=== PATIENT | male | born 2000 | race African-American/Black ===

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

== ENCOUNTER 2022-03-12 15:09 | Inpatient (IN) | payer MEDICAID ==
[~2022-03-12] VITALS: Ht 170.2 cm; Wt 70.3 kg
[~2022-03-12 15:09] MED LIST: ARIP400S3 IM; ARIP5TAB37 PO
[2022-03-12 21:30] VITALS: BP 121/79
[2022-03-12] MEDS ORDERED: INFLUENZA VIRUS VACCINE QVS 2022-23 (6MO+)/PF 60 MCG/0.5 ML SYRINGE IM. ONE (22:30)
[2022-03-12] MEDS ORDERED: ALBUTEROL SULFATE HFA 90 MCG/PUFF 8 GM INHALER IH PRN (23:30)
[2022-03-12] MEDS ORDERED: PETROLATUM,WHITE 28 GM JELLY TP PRN (23:30)
[2022-03-12] MEDS ORDERED: LOPERAMIDE HCL 2 MG CAPSULE PO PRN (23:30)
[2022-03-12] MEDS ORDERED: CloNIDine HCL 0.1 MG TABLET PO PRN (23:30)
[2022-03-12] MEDS ORDERED: ACETAMINOPHEN 325 MG TABLET PO PRN (23:30)
[2022-03-12] MEDS ORDERED: DOCUSATE SODIUM 100 MG CAPSULE PO PRN (23:30)
[2022-03-12] MEDS ORDERED: ONDANSETRON HCL 4 MG TABLET PO PRN (23:30)
[2022-03-12] MEDS ORDERED: BACITRACIN 28 GM OINTMENT TP PRN (23:30)
[2022-03-12] MEDS ORDERED: BENZOCAINE/MENTHOL LOZENGE PO PRN (23:30)
[2022-03-12] MEDS ORDERED: OMEPRAZOLE 20 MG CAPSULE PO PRN (23:30)
[2022-03-12] MEDS ORDERED: MAGNESIUM HYDROXIDE SUSPENSION 30 ML UDCUP PO PRN (23:30)
[2022-03-12] MEDS ORDERED: MAG HYDROX/AL HYDROX/SIMETH ES 30 ML SUSPENSION UDCUP PO PRN (23:30)
[2022-03-13 07:11] LABS: BASOPHILS % (AUTO) 0.4 % (0.0-2.0); EOSINOPHILS % (AUTO) 0.6 % (1.0-6.0); HEMATOCRIT 46.7 % (41-53); HEMOGLOBIN 15.3 g/dL (13.5-17.5); LYMPHOCYTES # (AUTO) 1.2 K/uL (1.0-4.8); LYMPHOCYTES % (AUTO) 15.9 % (22.0-44.0); MEAN CORPUSCULAR HEMOGLOBIN 31.2 pg (26.0-34.0); MEAN CORPUSCULAR HGB CONC 32.7 G/dL (31.0-37.0); MEAN CORPUSCULAR VOLUME 95 fL (80-100); MONOCYTES # (AUTO) 0.4 K/uL (0.1-1.0); NEUTROPHILS # (AUTO) 5.6 K/uL (1.8-7.7); NEUTROPHILS % (AUTO) 77.1 % (40.0-70.0); PLATELET COUNT (AUTO) 181 K/uL (150-450); RED CELL DISTRIBUTION WIDTH 14.2 % (11.5-14.5)
[2022-03-13 07:32] LABS: ALANINE AMINOTRANSFERASE 27 U/L (12-78); ALBUMIN 4.4 g/dL (3.4-5.0); ALKALINE PHOSPHATASE 66 U/L (46-116); ANION GAP 9 mmol/L (8-16); ASPARTATE AMINOTRANSFERASE 21 U/L (15-37); BILIRUBIN,TOTAL 0.4 mg/dL (0.1-1.0); CALCIUM, TOTAL 9.8 mg/dL (8.8-10.5); CARBON DIOXIDE 30 mmol/L (22-29); CHLORIDE 99 mmol/L (98-107); CHOL/HDL RATIO 3.2 (4.2-7.3); CHOLESTEROL 164 mg/dL (131-200); CREATININE 1.02 mg/dL (0.60-1.30); FREE T4 (FREE THYROXINE) 1.16 ng/dL (0.76-1.46); GLUCOSE,RANDOM 102 mg/dL (70-110); HDL CHOLESTEROL 52 mg/dL (40-60); LDL CHOL (CALC.) 98 mg/dL (0-130); POTASSIUM 4.1 mmol/L (3.5-5.1); SODIUM SERUM 138 mmol/L (136-145); THYROID STIMULATING HORMONE 1.33 uIU/mL (0.36-3.74); TOTAL PROTEIN, SERUM 8.4 g/dL (6.4-8.2); TRIGLYCERIDES 70 mg/dL (15-150); UREA NITROGEN, BLOOD 14 mg/dL (7-18)
[2022-03-13 07:33] LABS: GLOMERULAR FILTR. RATE CALC > 60 mL/min (>60)
[2022-03-13 07:36] LABS: HEMOGLOBIN A1C 5.6 % (3.8-5.6)
[2022-03-13 08:05] LABS: PLATELET MORPHOLOGY COMMENT GIANT PLTS PRESENT
[2022-03-13] MEDS: LORazepam 2 MG TABLET PO PRN ×2 (08:15→17:13)
[2022-03-13 13:03] VITALS: BP 146/79
[2022-03-13] MEDS: DIVALPROEX SODIUM 500 MG DR TABLET PO SCH (16:48)
[2022-03-13 20:33] VITALS: BP 143/80
[2022-03-14] MEDS: LORazepam 2 MG TABLET PO PRN ×3 (02:58→22:11)
[2022-03-14] MEDS: IBUPROFEN 600 MG TABLET PO PRN (02:58)
[2022-03-14] MEDS: DIVALPROEX SODIUM 500 MG DR TABLET PO SCH ×2 (08:31→16:50)
[2022-03-14 08:44] VITALS: BP 150/89
[2022-03-14] MEDS ORDERED: ARIPiprazole ER SUSPENSION 400 MG PRE-FILLED DUAL CHAMBER SYRINGE IM SCH (10:00)
[2022-03-14] MEDS ORDERED: ARIP10TA38 PO (13:47)
[2022-03-14] MEDS: NICOTINE 21 MG/24 HOUR PATCH TD SCH (14:35)
[2022-03-14] MEDS: ZOLPIDEM TARTRATE 10 MG TABLET PO PRN (20:30)
[2022-03-14 21:03] VITALS: BP 135/91
[2022-03-15] MEDS: HALOPERIDOL 5 MG TABLET PO PRN (00:09)
[2022-03-15 08:29] VITALS: BP 130/89
[2022-03-15] MEDS: DIVALPROEX SODIUM 500 MG DR TABLET PO SCH ×2 (08:29→16:33)
[2022-03-15] MEDS: NICOTINE 21 MG/24 HOUR PATCH TD SCH (09:00)
[2022-03-15] MEDS: LORazepam 2 MG TABLET PO PRN ×2 (16:33→20:35)
[2022-03-15 20:19] VITALS: BP 128/79
[2022-03-15] MEDS: ZOLPIDEM TARTRATE 10 MG TABLET PO PRN (20:35)
[2022-03-16] MEDS: LORazepam 2 MG TABLET PO PRN ×4 (02:07→20:35)
[2022-03-16] MEDS: DIVALPROEX SODIUM 500 MG DR TABLET PO SCH ×2 (08:20→16:21)
[2022-03-16 08:22] VITALS: BP 132/79
[2022-03-16] MEDS: NICOTINE 21 MG/24 HOUR PATCH TD SCH (08:23)
[2022-03-16] MEDS: IBUPROFEN 600 MG TABLET PO PRN (09:20)
[2022-03-16] MEDS ORDERED: LORazepam 2 MG/ML VIAL IM ONE (11:00)
[2022-03-16] MEDS ORDERED: HALOPERIDOL LACTATE 5 MG/ML VIAL IM ONE (11:00)
[2022-03-16] MEDS ORDERED: DiphenhydrAMINE HCL 50 MG/ML VIAL IM ONE (11:00)
[2022-03-16 20:00] VITALS: BP 129/78
[2022-03-16] MEDS: ZOLPIDEM TARTRATE 10 MG TABLET PO PRN (20:35)
[2022-03-17] MEDS: LORazepam 2 MG TABLET PO PRN ×4 (01:59→22:20)
[2022-03-17] MEDS: IBUPROFEN 600 MG TABLET PO PRN (05:44)
[2022-03-17 06:45] VITALS: BP 123/78
[2022-03-17 08:29] VITALS: BP 131/81
[2022-03-17] MEDS: NICOTINE 21 MG/24 HOUR PATCH TD SCH ×2 (09:00→09:14)
[2022-03-17] MEDS: DIVALPROEX SODIUM 500 MG DR TABLET PO SCH ×3 (09:00→16:10)
[2022-03-17] MEDS ORDERED: DiphenhydrAMINE HCL 50 MG/ML VIAL IM ONE (11:30)
[2022-03-17] MEDS ORDERED: HALOPERIDOL LACTATE 5 MG/ML VIAL IM ONE (11:30)
[2022-03-17] MEDS ORDERED: LORazepam 2 MG/ML VIAL IM ONE (11:30)
[2022-03-17] MEDS ORDERED: HALOPERIDOL LACTATE 5 MG/ML VIAL ONE (11:31)
[2022-03-17] MEDS ORDERED: LORazepam 2 MG/ML VIAL ONE (11:31)
[2022-03-17] MEDS ORDERED: DiphenhydrAMINE HCL 50 MG/ML VIAL ONE (11:31)
[2022-03-17 20:25] VITALS: BP 124/72
[2022-03-17] MEDS: ZOLPIDEM TARTRATE 10 MG TABLET PO PRN (22:20)
[2022-03-18 00:18] VITALS: BP 128/62
[2022-03-18] MEDS: LORazepam 2 MG TABLET PO PRN ×4 (02:29→20:35)
[2022-03-18] MEDS ORDERED: LORazepam 2 MG/ML VIAL ONE (05:54)
[2022-03-18] MEDS ORDERED: DiphenhydrAMINE HCL 50 MG/ML VIAL ONE (05:54)
[2022-03-18] MEDS ORDERED: HALOPERIDOL LACTATE 5 MG/ML VIAL ONE (05:54)
[2022-03-18] MEDS ORDERED: LORazepam 2 MG/ML VIAL IM ONE (06:00)
[2022-03-18] MEDS ORDERED: DiphenhydrAMINE HCL 50 MG/ML VIAL IM ONE (06:00)
[2022-03-18] MEDS ORDERED: HALOPERIDOL LACTATE 5 MG/ML VIAL IM ONE (06:00)
[2022-03-18 06:03] VITALS: BP 123/99
[2022-03-18 06:44] VITALS: BP 132/76
[2022-03-18 08:33] VITALS: BP 138/75
[2022-03-18] MEDS: DIVALPROEX SODIUM 500 MG DR TABLET PO SCH ×2 (08:59→16:32)
[2022-03-18] MEDS: NICOTINE 21 MG/24 HOUR PATCH TD SCH (08:59)
[2022-03-18] MEDS: HALOPERIDOL 5 MG TABLET PO PRN ×2 (12:11→16:32)
[2022-03-18 20:23] VITALS: BP 113/69
[2022-03-18] MEDS: ZOLPIDEM TARTRATE 10 MG TABLET PO PRN (20:35)
[2022-03-19] MEDS ORDERED: DiphenhydrAMINE HCL 50 MG/ML VIAL ONE (00:43)
[2022-03-19] MEDS ORDERED: LORazepam 2 MG/ML VIAL ONE (00:43)
[2022-03-19] MEDS ORDERED: HALOPERIDOL LACTATE 5 MG/ML VIAL ONE (00:44)
[2022-03-19] MEDS ORDERED: LORazepam 2 MG/ML VIAL IM ONE (00:45)
[2022-03-19] MEDS ORDERED: DiphenhydrAMINE HCL 50 MG/ML VIAL IM ONE (00:45)
[2022-03-19] MEDS ORDERED: HALOPERIDOL LACTATE 5 MG/ML VIAL IM ONE (00:45)
[2022-03-19] MEDS: LORazepam 2 MG TABLET PO PRN ×2 (06:57→10:59)
[2022-03-19 08:39] VITALS: BP 140/80
[2022-03-19] MEDS: DIVALPROEX SODIUM 500 MG DR TABLET PO SCH (09:01)
[2022-03-19] MEDS: NICOTINE 21 MG/24 HOUR PATCH TD SCH (09:01)
[2022-03-19] MEDS: HALOPERIDOL 5 MG TABLET PO PRN (11:12)
[2022-03-19] MEDS ORDERED: ARIP400S3 IM (12:56)
[2022-03-19] MEDS ORDERED: DIVA-112 PO ×2 (12:56→13:03)
[2022-04-10] MEDS ORDERED: ARIPiprazole ER SUSPENSION 400 MG PRE-FILLED DUAL CHAMBER SYRINGE IM SCH (09:00)
== END 2022-03-19 16:32 | disposition home or self-care (01) | DRG 750 ==
LOC: B3A 21:19
PROVIDERS: ADMIT Psychiatry & Neurology Psychiatry; ATTEND Psychiatry & Neurology Psychiatry
DX: F20.9 Schizophrenia, unspecified (principal); F10.10 Alcohol abuse, uncomplicated; F17.200 Nicotine dependence, unspecified, uncomplicated; F41.9 Anxiety disorder, unspecified; Z79.899 Other long term (current) drug therapy; Z71.41 Alcohol abuse counseling and surveillance of alcoholic; Z71.51 Drug abuse counseling and surveillance of drug abuser
CPT/HCPCS: 80053; 80061; 80164; 83036; 84439; 84443; 85025; 87081; 90686; J0401; J1200; J1630; J2060; Q0162

== ENCOUNTER 2024-07-31 00:21 | Emergency (ER) | payer MEDICAID, OTHER ==
[~2024-07-31] VITALS: Ht 177.8 cm; Wt 92.0 kg
[~2024-07-31 00:21] MED LIST changes: -ARIP5TAB37 PO; +DIVA-112 PO
[2024-07-31 00:25] VITALS: TEMP 98
[2024-07-31 01:26] LABS: BASOPHILS % (AUTO) 0.3 % (0.0-2.0); EOSINOPHILS % (AUTO) 0.9 % (1.0-6.0); HEMATOCRIT 39.9 % (41-53); HEMOGLOBIN 13.6 g/dL (13.5-17.5); LYMPHOCYTES # (AUTO) 1.6 K/uL (1.0-4.8); LYMPHOCYTES % (AUTO) 22.9 % (22.0-44.0); MEAN CORPUSCULAR HEMOGLOBIN 31.6 pg (26.0-34.0); MEAN CORPUSCULAR VOLUME 93 fL (80-100); MONOCYTES # (AUTO) 0.4 K/uL (0.1-1.0); MONOCYTES % (AUTO) 6.3 % (2.0-9.0); NEUTROPHILS # (AUTO) 4.7 K/uL (1.8-7.7); NEUTROPHILS % (AUTO) 69.6 % (40.0-70.0); PLATELET COUNT (AUTO) 171 K/uL (150-450); RED BLOOD CELL COUNT(AUTO) 4.29 MIL/uL (4.50-5.90); RED CELL DISTRIBUTION WIDTH 13.9 % (11.5-14.5); WHITE BLOOD COUNT (AUTO) 6.8 K/uL (4.5-11.0)
[2024-07-31 01:31] LABS: ANION GAP 5 mmol/L (8-16); CALCIUM, TOTAL 8.2 mg/dL (8.8-10.5); CARBON DIOXIDE 28 mmol/L (22-29); CHLORIDE 106 mmol/L (98-107); CREATININE 0.92 mg/dL (0.60-1.30); GLOMERULAR FILTR. RATE CALC > 60 mL/min (>60); GLUCOSE,RANDOM 122 mg/dL (70-110); POTASSIUM 3.3 mmol/L (3.5-5.1); SODIUM SERUM 139 mmol/L (136-145); UREA NITROGEN, BLOOD 12 mg/dL (7-18)
[2024-07-31 01:38] LABS: B-TYPE NATRIURETIC PEPTIDE 18 pg/mL (0-100)
[2024-07-31 01:44] LABS: THYROID STIMULATING HORMONE 0.48 uIU/mL (0.36-3.74); TROPONIN I-HIGH SENSITIVITY 7 ng/L (<76)
[2024-07-31 01:53] VITALS: BP 123/59; PULSE 56; RESP 16; O2SAT 100
[2024-07-31] MEDS: POTASSIUM CHLORIDE 20 MEQ ER TABLET PO ONE (02:01)
== END 2024-07-31 02:14 | disposition home or self-care (01) ==
LOC: EMS 00:21
DX: R00.2 Palpitations (principal); R11.0 Nausea; E87.6 Hypokalemia; F20.9 Schizophrenia, unspecified; Z91.018 Allergy to other foods; Z79.899 Other long term (current) drug therapy
CPT/HCPCS: 80048; 83880; 84443; 84484; 85025; 93005; 99284